=== PATIENT | female | born 1955 | race Caucasian/White ===

== ENCOUNTER → 2023-04-29 11:03 | Outpatient (REF) | payer OTHER, SELFPAY | LOC: HWWDC 11:03 | PROVIDERS: ATTENDING PHYSICIAN Obstetrics & Gynecology Gynecology; FAMILY PHYSICIAN Family Medicine | DX: R92.8 Other abnormal and inconclusive findings on diagnostic imaging of breast (principal) | CPT/HCPCS: 77061; 77065 ==

== ENCOUNTER → 2023-05-01 12:45 | Outpatient (REF) | payer OTHER, SELFPAY | LOC: HWRAD 12:45 | PROVIDERS: ATTENDING PHYSICIAN Physician Assistant; FAMILY PHYSICIAN Family Medicine | DX: K76.0 Fatty (change of) liver, not elsewhere classified (principal) | CPT/HCPCS: 76700 ==

== ENCOUNTER → 2023-05-26 08:29 | Outpatient (REF) | payer OTHER, SELFPAY | LOC: WDC 08:29 | PROVIDERS: ATTENDING PHYSICIAN Obstetrics & Gynecology Gynecology; FAMILY PHYSICIAN Family Medicine | DX: R92.8 Other abnormal and inconclusive findings on diagnostic imaging of breast (principal) | CPT/HCPCS: 76642 ==

== ENCOUNTER → 2024-05-19 09:42 | Outpatient (REF) | payer OTHER, SELFPAY | LOC: DHVS 09:42 | PROVIDERS: ATTENDING PHYSICIAN Surgery Vascular Surgery; FAMILY PHYSICIAN Family Medicine | DX: I82.422 Acute embolism and thrombosis of left iliac vein (principal); Z95.828 Presence of other vascular implants and grafts | CPT/HCPCS: 93971 ==

== ENCOUNTER → 2024-08-17 10:25 | Outpatient (REF) | payer OTHER, SELFPAY | LOC: HWRAD 10:25 | PROVIDERS: ATTENDING PHYSICIAN Physician Assistant Medical | DX: R07.81 Pleurodynia (principal) | CPT/HCPCS: 71101 ==

== ENCOUNTER → 2024-09-08 13:45 | Outpatient (REF) | payer OTHER, SELFPAY | LOC: HWRAD 13:45 | PROVIDERS: ATTENDING PHYSICIAN Physician Assistant Medical | DX: Z13.820 Encounter for screening for osteoporosis (principal); K76.0 Fatty (change of) liver, not elsewhere classified; E04.1 Nontoxic single thyroid nodule | CPT/HCPCS: 76536; 76700 ==